=== PATIENT | female | born 1990 | race Caucasian/White ===

== ENCOUNTER 2018-11-25 16:28 | Emergency (ER) | payer OTHER, SELFPAY ==
[2018-11-25 16:30] VITALS: BP 120/70; PULSE 102; RESP 18; TEMP 36.5; O2SAT 98; BMI 30.9
--- NOTE | 2018-11-25 17:04 | US_ITS ---
STUDY: ABDOMINAL ULTRASOUND - RIGHT UPPER QUADRANT REASON FOR VISIT: Female, 28 years old. Right upper quadrant pain. TECHNIQUE: Ultrasound evaluation of the right upper quadrant was performed with real-time and static garcia-scale imaging. TECHNICAL QUALITY: Adequate. COMPARISON: None. FINDINGS: Liver: The liver measures 13.8 cm. There is increased echogenicity consistent with fatty infiltration. The bile ducts are within normal limits. There is hepatic color flow. The direction of portal flow is hepatopetal. There is no demonstrated mass lesion. Gallbladder: Normal distended gallbladder. The gallbladder wall measures 3 mm. There is a negative sonographic Mercedes's sign. There is no pericholecystic fluid. Multiple shadowing stones are noted. Mild sludge is present. Common Bile Duct (C.B.D.): The common bile duct measures 4 mm. Pancreas: Demonstrated portions of the pancreas are unremarkable. The tail was not seen due to bowel gas. Right Kidney: Normal size of the right kidney. The right kidney measures 10.3 x 4.8 x 5.2 cm. Normal renal cortex. The right cortex measures 1.4 cm. There is no demonstrated renal mass or cyst. There is no right hydronephrosis. US/Gallbladder IMPRESSION: Cholelithiasis. No evidence of acute cholecystitis. Electronically Signed: Sally Espana MD at 19:51 EST Tel , Service support ,
[2018-11-25] MEDS: Morphine 4 MG/ML Syringe IV (17:14)
[2018-11-25] MEDS: 0.9% Normal Saline 1,000 ML 150 ML IV (17:14)
[2018-11-25] MEDS: Ondansetron 4 MG/2 ML Vial IV (17:14)
[2018-11-25 17:17] VITALS: BP 114/79; PULSE 79; RESP 16; TEMP 37; O2SAT 96
[2018-11-25 17:55] LABS: Absolute Lymphocyte Count 3.52 X10^3/ul (0.83-4.51); Absolute Neutrophil Count 3.4 X10^3/uL (2.0-7.7); Basophil# 0.06 X10^3/uL; Basophil% 0.7 % (0-1); Eosinophil# 0.36 X10^3/uL; Eosinophils% 4.5 % (0-5); Hematocrit 43.4 % (37-47); Hemoglobin 14.4 g/dl (12.0-15.0); Lymphocyte # 3.52 X10^3/ul (4.0); Lymphocyte % 43.9 % (19-41); Mean Corp Hgb Conc 33.2 g/gl (32-36); Mean Corpuscular Volume 84.4 fL (81-99); Mean Platelet Vol. 10.5 fl (6.2-12.0); Monocyte# 0.68 X10^3/uL; Monocyte% 8.5 % (0-10); Neutrophil # 3.38 X10^3/uL (2.7-7.7); Neutrophil % 42.3 % (47-70); Platelet Count 366 K/mm3 (150-450); RBC Distribution Width SD 39.9 fl (35.1-43.9); Red Blood Count 5.14 M/mm3 (4.2-5.4)
[2018-11-25 17:57] LABS: POSITIVE COUNT NO; POSITIVE DIFFERENTIAL NO; POSITIVE MORPHOLOGY NO
[2018-11-25 18:04] LABS: AST(SGOT) 43 U/L (15-37); Alanine Aminotransfer ALT/SGPT 59 U/L (13-56); Albumin, Serum 3.6 g/dL (3.2-5.0); Alkaline Phosphatase 184 U/L (45-117); Anion Gap 8 (5-15); BUN 7 mg/dL (7-18); BUN/Creat Ratio 10.2 RATIO (10-20); Bilirubin, Direct 0.14 mg/dL (0.00-0.30); Calcium,Total 8.6 mg/dL (8.5-10.1); Chloride 107 mmol/L (98-107); Creatinine, Serum 0.68 mg/dL (0.55-1.02); EST Glomerular Filtration Rate 108 mL/min (>60); Est Glom Filt Rate - Afr Amer 131 mL/min (>60); Estimated Creatinine Clearance 101.89 ml/min; Globulin 4.4 g/dL (2.2-4.2); Glucose 96 mg/dL (74-106); Lipase 106 U/L (73-393); Potassium 3.6 mmol/L (3.5-5.1); Sodium Level 141 mmol/L (136-145)
[2018-11-25 18:12] LABS: Pregnancy, Serum, hCG Quali. NEGATIVE Negative (0-9 Nonpreg)
--- NOTE | 2018-11-25 20:17 | ED.DCSUM_ITS ---
- ER Visit Summary Date of Service: 11/25/18 Chief Complaint: Abdominal pain History of Present Illness: The patient is a 28 F recently diagnosed with gallstones. Patient states she had severe abdominal pain since eating breakfast this morning. She feels nauseated. Dr. Garcia is scheduled to do an upper scope in 3 days. She has not had fever today. Physical Examination: Vital signs unremarkable. Patient is lying in bed no acute distress. She appears uncomfortable but in no distress. Head and neck examination normal. Heart is regular rate and rhythm. Lungs sounds are clear. Abdomen is soft with moderate tenderness to the right upper quadrant. There is no guarding or rebound. Test Results: CBC and chemistry studies are normal. LFTs significant for normal total and direct bilirubin. Alk phos is 184, ALT 59, AST 43. Lipase is normal. test negative. Right upper quadrant ultrasound shows cholelithiasis. There is no evidence of acute cholecystitis. Emergency Department Course and Treatment: Patient was given morphine, Zofran, and IV fluids. Test results were discussed with patient and at bedside. I spoke with Dr. Garcia. Patient will be given pain medication for home and will follow up this week for her scope as scheduled. Treatment Plan: [] Disposition: Discharge Impression: Cholelithiasis This note was generated with [employer] dictation software. It may contain incorrect words, spelling, and punctuation that were not noted in review of the chart prior to signing ED Disposition - Plan for ED Patient: Disposition: Home or Assisted Living Instructions: ED Abdominal Pain Gallstone Poss Prescriptions: Hydrocodone Bitart/Apap 5-325 [[place] 5MG-325MG] 1 tablet PO Q6H PRN PRN 3 Days #10 tablet PRN Reason: Pain Ondansetron [Zofran Odt] 4 mg PO Q8H PRN PRN #10 tablet PRN Reason: Nausea Referrals: Katie Garcia MD [STAFF PHYSICIAN] - Keep Jayden appointment
[2018-11-25] MEDS: HYDROcodone Bitartrate/Apap 5/325 Tablet PO (20:33)
[2018-11-25] MEDS: Ondansetron ODT 4 MG Tablet PO (20:34)
[2018-11-25 20:35] VITALS: BP 101/66; PULSE 65; PULSE 68; RESP 17; O2SAT 97
== END 2018-11-25 20:42 | disposition home or self-care (01) ==
PROVIDERS: Emergency Provider Emergency Medicine; Family Provider Student in an Organized Health Care Education/Training Program; PCP Student in an Organized Health Care Education/Training Program
DX: K80.20 Calculus of gallbladder without cholecystitis without obstruction (principal)
CPT/HCPCS: 76705; 80048; 80076; 83690; 84703; 85025; 96361; 96374; 96375; 99283; J7030; A4216; J2405

== ENCOUNTER 2019-02-04 09:59 | Day surgery (SDC) | payer OTHER, SELFPAY ==
[2019-02-04] VITALS (8 sets, daily range): BP systolic 106–125; BP diastolic 63–78; PULSE 67–85; RESP 16; TEMP 36.5–36.9; O2SAT 95–100; BMI 30.3
--- NOTE | 2019-02-04 10:10 | EKG12_ITS ---
Test Reason : PRE-OP Blood Pressure : / mmHG Vent. Rate : 071 BPM Atrial Rate : 071 BPM P-R Int : 130 ms QRS Dur : 082 ms QT Int : 392 ms P-R-T Axes : 036 052 041 degrees QTc Int : 425 ms Normal sinus rhythm with sinus arrhythmia Normal ECG Confirmed by JAZMYN RINCON, EMILY ([id number]), editor & co founder TYRELL GAUTAM ([id number]) on 02/05/2019 11:42:13 AM Referred By: Katie Garcia Confirmed By:EMILY ELDRIDGE MD
[2019-02-04 10:26] LABS: Hematocrit 40.4 % (37-47); Hemoglobin 13.7 g/dl (12.0-15.0); Mean Corp Hgb Conc 33.9 g/gl (32-36); Mean Corpuscular Hgb 28.4 pg (27.0-32.0); Mean Corpuscular Volume 83.6 fL (81-99); Mean Platelet Vol. 9.9 fl (6.2-12.0); Platelet Count 332 K/mm3 (150-450); RBC Distribution Width CV 13.1 % (11.6-14.6); RBC Distribution Width SD 39.6 fl (35.1-43.9); Red Blood Count 4.83 M/mm3 (4.2-5.4); White Blood Count 7.5 K/mm3 (4.4-11.0)
[2019-02-04 10:27] LABS: Scan Indicated on CBC? Y/N NO
[2019-02-04 10:34] LABS: Prothrombin Time (Protime)PT. 12.8 SECONDS (11.7-14.9)
[2019-02-04 10:35] LABS: Partial Thromboplast Time 25.4 Seconds (24.1-36.2)
[2019-02-04 10:46] LABS: AST(SGOT) 20 U/L (15-37); Alanine Aminotransfer ALT/SGPT 37 U/L (13-56); Albumin, Serum 3.7 g/dL (3.2-5.0); Alkaline Phosphatase 161 U/L (45-117); Bilirubin, Direct 0.15 mg/dL (0.00-0.30); Globulin 4.3 g/dL (2.2-4.2)
--- NOTE | 2019-02-04 12:00 | GALL_PTH ---
PATIENT: TOSHIA SHARIF LOC: [facility] [place] U#:[id number] AGE/SX: 28/F ROOM: RE02/04/[address]: Dr. Katie Garcia MD : 1990 BED: DIS: 02/04/2019 SPEC #: [id number] RECD: 02/04/19 13:49 STATUS: YOLIS PAYAM #: [id number] PEPITO: 02/04/19 12:[address]: Ktaie Garcia DEPT: SURGICAL PATHOLOGY RECD BY: Contreras Neri ENTERED: 02/04/19 14:10 SP TYPE: BEN FRAZIER DR: Dr. Kendell Magana DO Tissues: Gallbladder, NOS Procedures: Surgery Specimen Level III HEADER OPERATION: Laparoscopic cholecystectomy with intraoperative cholangiogram PRE-OP DIAGNOSIS: Calculus of gallbladder without cholecystitis, without obstruction. Right upper quadrant abdominal pain TISSUE SUBMITTED: Gallbladder MICROSCOPIC DIAGNOSIS Gallbladder, cholecystectomy: Chronic cholecystitis and cholelithiasis. SJ:gómez 02/05/19 MICROSCOPIC DESCRIPTION Slides are reviewed. GROSS DESCRIPTION Received is one container labeled with the patient's name and designated gallbladder. The specimen consists of a gallbladder measuring 6.5 cm in length and up to 3.5 cm in diameter. The external surface is pink-purvis, smooth and glistening for the most part. Focally it is granular, hemorrhagic and contains cautery artifact. The gallbladder contains a small amount of green-yellow mucoid bile and multiple multifaceted to irregular yellowish stones and stone fragments measuring in aggregate 3.5 x 4 x 1.5 cm and 0.5 to 1.5 cm in greatest dimension. The mucosa is bile-stained and without any mass lesions. The gallbladder wall measures up to 0.2 cm in thickness. Chief Clerk sections from the gallbladder and the cystic duct are submitted in one cassette. / GARRETT:gómez 02/04/19 TC:3 CPT: 49256
--- NOTE | 2019-02-04 12:00 | RAD_ITS ---
STUDY: INTRAOPERATIVE CHOLANGIOGRAM. REASON FOR EXAM: Female, 28 years old. Laparoscopic cholecystectomy. FLUOROSCOPY TIME (if supplied): (0:03) minutes/seconds. Single image was submitted. TECHNIQUE: An intraoperative cholangiogram was performed by the surgeon. COMPARISON: None. FINDINGS: The common bile duct is visualized. No intraluminal filling defect is seen. There is free flow of contrast into the duodenum. No intraluminal filling defect is seen RAD/Cholangiogram/ O R,Initial IMPRESSION: Unremarkable intraoperative cholangiogram. Electronically Signed: Fermín Caraballo, at 9:35 EDT , Service support ,
--- NOTE | 2019-02-04 12:04 | PCM.DC.GB ---
Discharge Diet: No Restrictions - avoid carbonated beverages for a couple of days, drink plenty of fluids Discharge Activity: Return to Normal Activity, May not drive while taking narcotic pain medications. Lifting Restrictions: no lifting/pulling/pushing greater than 20 pounds for 2 weeks Call your doctor if your incision/area has: Continuous Slow Oozing, Foul Smelling Discharge Call your doctor if you observe: Fever of 101 or Higher Additional Dressing/Incision Instructions:: Leave dressings in place. May get wet in shower. Do not soak - no tub baths/swimming until further notice Additional Instructions: Recommended pain mediation regimen: take 650 mg acetaminophen, than in 3 hours take 600 mg ibuprofen, then in 3 hours take 650 mg of acetaminophen, then in 3 hours take 600 mg ibuprofen, etc. Take narcotic medication for breakthrough pain and at night to help you sleep Allergies/Adverse Reactions: Allergies acetaminophen [From Percocet] Adverse Reaction (Verified 02/04/19 10:24) Nausea oxycodone [From Percocet] Adverse Reaction (Verified 02/04/19 10:24) Nausea Medications to take at Discharge Fluoxetine HCl 20 mg PO DAILY 11/25/18 Lansoprazole 30 mg PO DAILY 11/25/18 Ondansetron [Zofran Odt] 4 mg PO Q8H PRN PRN #10 tablet 11/25/18 Hydrocodone Bitart/Apap 5-325 [[place] 5MG-325MG] 1 tab PO Q8H PRN PRN 4 Days #12 tab 02/04/19 The following prescriptions were given: Hydrocodone Bitart/Apap 5-325 [[place] 5MG-325MG] 1 tab PO Q8H PRN PRN 4 Days #12 tab PRN Reason: Pain Orders to be completed after discharge: Partial Thromboplast Time Time Frame: 02/04/19, Location: Laboratory CBC-Complete Blood Cnt No Diff Time Frame: 02/04/19, Location: Laboratory Liver Profile Time Frame: 02/04/19, Location: Laboratory Prothrombin Time w/INR Time Frame: 02/04/19, Location: Laboratory Primary Care Physician: Kendell Magana DO [Primary Care Provider] - Test Results: Test results from this visit will be discussed in further detail at your follow-up appointment, if applicable. Please Follow Up With: Katie Garcia MD - call When: to be seen in 7-10 days, please call for date and time, thank you
--- NOTE | 2019-02-04 12:07 | DCINST_ITS ---
Discharge Diet: No Restrictions - avoid carbonated beverages for a couple of days, drink plenty of fluids Discharge Activity: Return to Normal Activity, May not drive while taking narcotic pain medications. Lifting Restrictions: no lifting/pulling/pushing greater than 20 pounds for 2 weeks Call your doctor if your incision/area has: Continuous Slow Oozing, Foul Smelling Discharge Call your doctor if you observe: Fever of 101 or Higher Additional Dressing/Incision Instructions:: Leave dressings in place. May get wet in shower. Do not soak - no tub baths/swimming until further notice Additional Instructions: Recommended pain mediation regimen: take 650 mg acetaminophen, than in 3 hours take 600 mg ibuprofen, then in 3 hours take 650 mg of acetaminophen, then in 3 hours take 600 mg ibuprofen, etc. Take narcotic medication for breakthrough pain and at night to help you sleep Allergies/Adverse Reactions: Allergies acetaminophen [From Percocet] Adverse Reaction (Verified 02/04/19 10:24) Nausea oxycodone [From Percocet] Adverse Reaction (Verified 02/04/19 10:24) Nausea Medications to take at Discharge Fluoxetine HCl 20 mg PO DAILY 11/25/18 Lansoprazole 30 mg PO DAILY 11/25/18 Ondansetron [Zofran Odt] 4 mg PO Q8H PRN PRN #10 tablet 11/25/18 Hydrocodone Bitart/Apap 5-325 [[place] 5MG-325MG] 1 tab PO Q8H PRN PRN 4 Days #12 tab 02/04/19 The following prescriptions were given: Hydrocodone Bitart/Apap 5-325 [[place] 5MG-325MG] 1 tab PO Q8H PRN PRN 4 Days #12 tab PRN Reason: Pain Orders to be completed after discharge: Partial Thromboplast Time Time Frame: 02/04/19, Location: Laboratory CBC-Complete Blood Cnt No Diff Time Frame: 02/04/19, Location: Laboratory Liver Profile Time Frame: 02/04/19, Location: Laboratory Prothrombin Time w/INR Time Frame: 02/04/19, Location: Laboratory Primary Care Physician: Kendell Magana DO [Primary Care Provider] - Test Results: Test results from this visit will be discussed in further detail at your follow- up appointment, if applicable. Please Follow Up With: Katie Garcia MD - call When: to be seen in 7-10 days, please call for date and time, thank you
[2019-02-04] MEDS: Bupiv/Epi 0.25% 30 ML Vial (12:26)
--- NOTE | 2019-02-04 13:14 | OP.PCM_ITS ---
Report of Operation Date of Procedure: 02/04/19 Pre-Operative Diagnosis: cholelithiasis Post-Operative Diagnosis: cholelithiasis, chronic cholecystitis Surgery/Procedure Performed:: Laparoscopic cholecystectomy with cholangiograms Description of Surgical Findings:: normal cholangiogram, chronic cholecystitis, multiple gallstones loom checker: Panchito Quiroz Type of Anesthesia:: General Anesthesiologist: Edward Webster Specimen's removed: gallbladder and contents Estimated Blood Loss (mL): < 10 Fluids Replaced: 1400 cc RL Description of Procedure: After informed consent was given, the patient was brought to the Operating Room. Appropriate time out protocol was followed. She was then placed in the supine position. The patient was then placed under general endotracheal anesthesia. The abdomen was then prepped with a sterile surgical skin preparation and floyd rile surgical drapes were placed. The infraumbilical skin fold was grasped with penetrating clamps and the skin and subcutaneous tissues were infiltrated with 0.5% marcaine with epinephrine. A skin incision was then made with a 15 blade scalpel. The anterior abdominal wall was elevated and a Veress needle was carefully inserted into the intraabdominal cavity. It was checked to be in the proper position with a normal saline drop test. A CO2 pneumoperitoneum was then created. Once this was achieved, then the Veress needle was removed and an 11mm trocar was placed in its stead. A 10mm laparoscope was then inserted into the trocar and careful attention was directed to the intraabdominal contents. There was no evidence of injury to any intraabdominal organs from insertion of the Veress needle or the trocar. Under direct visualization, a 5mm subxiphoid trocar and two lateral 5mm right subcostal trocars were placed. The skin and subcutaneous tissues at these sites were infiltrated with 0.5% marcaine with epinephrine prior to placement of these trocars. Attention was then directed to the right upper quadrant of the abdomen. Graspers were placed in the lateral trocars to grasp the distal aspect of the gallbladder and direct it cephalad and to grasp the gallbladder at Monsivais?s pouch and direct it laterally. Dissection then began on the proximal gallbladder continuing down to the area of the triangle of Calot to bluntly dissect out the cystic duct. The neck of the gallbladder was identified and blunt dissection continued to dissect out a segment of the cystic duct. A clip was then placed on the neck of the gallbladder. A small ductotomy was then made. A Ranfac catheter was brought in through a separate skin incision and placed into the cystic duct. An intraopera tive cholangiogram was performed under fluoroscopy. The xray revealed no lesions in the common bile duct, arborization of the biliary tree, and good flow into the duodenum. The Ranfac catheter was then removed and two clips were placed proximal to the ductotomy and the cystic duct was then transected. The cystic artery was visualized and bluntly isolated and then two clips were placed proximally and one clip distally and then it was transected between the proximal and distal clips. The gallbladder was then from the liver bed using electrocautery and thus able to be brought out of the umbilical port via an Endobag. It was then forwarded to pathology for analysis. The liver bed was carefully examined. There was no evidence of bile leakage or bleeding. The cystic duct stump and cystic artery stump had their clips intact and there was no evidence of bile leakage or bleeding. The remainder of the abdomen was grossly normal. The CO2 was released and all trocars removed intact. The periumbilical fascia was approximated with a [id number] 0 vicryl suture. All skin incision were closed with 4-0 monocryl in a subdermal fashion. Cavilol and Steristrips were used to reinforce the skin closure. Sterile dressings were applied to all wounds. The patient was extubated and brought to the Recovery Room in stable condition. - Complications none noted - Admit VTE Documentation VTE Present on Admission: Yes VTE Mechan Device Prophylaxis: SCD's
[2019-02-04] MEDS: Ondansetron 4 MG/2 ML Vial IV (15:34)
== END 2019-02-04 16:30 | disposition home or self-care (01) ==
LOC: SDC 09:59 → AC 10:01
PROVIDERS: Family Provider Student in an Organized Health Care Education/Training Program; PCP Student in an Organized Health Care Education/Training Program; Referring Provider Surgery; Visit Provider Surgery
PROC: (CPT 47610; principal; 2019-02-04 11:40)
DX: K80.10 Calculus of gallbladder with chronic cholecystitis without obstruction (principal); K21.9 Gastro-esophageal reflux disease without esophagitis
CPT/HCPCS: 00790; 47563; 74300; 76000; 80076; 85027; 85610; 85730; 88304; 93005; J7120; A4216; J2405

== ENCOUNTER 2020-06-06 12:26 | Emergency (ER) | payer MEDICAID, SELFPAY ==
[2019-02-04 10:25] VITALS: BMI 30.3
[2020-06-06 12:27] VITALS: BP 117/73; PULSE 85; RESP 14; TEMP 36.3; O2SAT 99; BMI 28.8
--- NOTE | 2020-06-06 12:37 | ED.DCSUM_ITS ---
- ER Visit Summary Date of Service: 06/06/20 Chief Complaint: Headache History of Present Illness: The patient is a 30 F presenting with headache. Patient states this started last night. Headache was gradual in onset. She states this feels similar to her previous migraine headaches. She states she ran out of her migraine medication. She does not know what migraine medication she was on. She denies recent trauma. She complains of light sensitivity and nausea. She has pain to the left side of her head. Denies neck pain. Denies other complaints. Physical Examination: Vitals are stable. Patient is afebrile. Alert no acute distress. HEENT exam is unremarkable. Neck is supple. No meningismus Lungs are clear and equal bilaterally. Heart is regular rate and rhythm. Abdomen is soft nontender nondistended. Extremities are unremarkable. Skin is warm and dry. No focal neurologic deficit. Remainder of exam is unremarkable. Emergency Department Course and Treatment: Patient was given Reglan, Benadryl IV. On reevaluation, she is feeling much improved. She is advised to follow-up with her primary care physician. Advised return to the ED for worsening complaints. Disposition: Discharge home Impression: Headache This note was generated with [employer] dictation software. It may contain incorrect words, spelling, and punctuation that were not noted in review of the chart prior to signing ED Disposition - Plan for ED Patient: Instructions: ED Headache Unspecified Referrals: Kendell Magana DO [Primary Care Provider] -
[2020-06-06] MEDS: DiphenhydrAMINE 50 MG/ML Syringe 25 MG IV (13:30)
[2020-06-06] MEDS: Metoclopramide 10 MG/2 ML Vial 5 MG IV (13:30)
--- NOTE | 2020-06-06 14:02 | ED.DEP ---
ED Disposition - Plan for ED Patient: Instructions: ED Headache Unspecified Referrals: Kendell Magana DO [Primary Care Provider] -
[2020-06-06 14:25] VITALS: BP 102/63; PULSE 68; RESP 18; O2SAT 100
== END 2020-06-06 14:27 | disposition home or self-care (01) ==
PROVIDERS: Emergency Provider Emergency Medicine; PCP Student in an Organized Health Care Education/Training Program
DX: R51 Headache (principal)
CPT/HCPCS: 96374; 96375; 99284

== ENCOUNTER 2021-06-18 00:33 | Emergency (ER) | payer MEDICAID, SELFPAY ==
[2021-06-18 00:35] VITALS: BP 127/68; PULSE 97; RESP 15; TEMP 36.4; O2SAT 98; BMI 34.8
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
[2021-06-18 01:28] VITALS: O2SAT 96
[2021-06-18 01:28] LABS: Absolute Lymphocyte Count 3.49 X10^3/uL (0.83-4.51); Absolute Neutrophil Count 6.9 X10^3/uL (2.0-7.7); Basophil# 0.07 X10^3/uL; Basophil% 0.6 % (0-1); Eosinophil# 0.29 X10^3/uL; Eosinophils% 2.5 % (0-5); Hematocrit 41.4 % (37-47); Hemoglobin 13.8 g/dL (12.0-15.0); Lymphocyte # 3.49 X10^3/ul (0.83-4.51); Lymphocyte % 29.6 % (19-41); Mean Corp Hgb Conc 33.3 g/dL (32-36); Mean Corpuscular Hgb 28.5 pg (27.0-32.0); Mean Corpuscular Volume 85.4 fL (81-99); Mean Platelet Vol. 9.9 fl (6.2-12.0); Monocyte# 0.97 X10^3/uL; Monocyte% 8.2 % (0-10); NRBC Flagged by Analyzer 0 % (0-5); Neutrophil # 6.92 X10^3/uL (2.7-7.7); Neutrophil % 58.8 % (47-70); Platelet Count 388 K/mm3 (150-450); RBC Distribution Width SD 37.2 fl (35.1-43.9); Red Blood Count 4.85 M/mm3 (4.2-5.4); White Blood Count 11.8 K/mm3 (4.4-11.0)
[2021-06-18 01:47] LABS: Anion Gap 4 (5-15); BUN 9 mg/dL (7-18); BUN/Creat Ratio 14.4 RATIO (10-20); Calcium,Total 9.3 mg/dL (8.5-10.1); Chloride 108 mmol/L (98-107); Creatinine, Serum 0.62 mg/dL (0.55-1.02); EST Glomerular Filtration Rate 118 mL/min (>60); Est Glom Filt Rate - Afr Amer 143 mL/min (>60); Estimated Creatinine Clearance 108.76 ml/min; Glucose 87 mg/dL (74-106); Potassium 3.4 mmol/L (3.5-5.1); Sodium Level 140 mmol/L (136-145); Troponin-I HS 5 pg/mL (3.0-54.0)
--- NOTE | 2021-06-18 01:49 | RAD_ITS ---
STUDY: X-RAY CHEST REASON FOR EXAM: Female, 31 years old. Chest pain TECHNIQUE: Portable, upright, AP chest radiograph COMPARISON: None. FINDINGS: The lungs are clear and expanded. There is no demonstrated pleural abnormality. Normal size heart. Normal mediastinum and timbo. Normal visualized pulmonary arteries. Normal visualized aortic arch and descending thoracic aorta. Normal visualized thoracic spine. Normal visualized ribs, clavicles, and shoulders. There is no demonstrated abnormality of the visualized soft tissue structures of the upper abdomen. RAD/Chest 1 View (Portable) IMPRESSION: No acute abnormal cardiopulmonary finding. Electronically Signed: Ryley Rich MD at 2:34 EDT Tel , Service support ,
--- NOTE | 2021-06-18 01:50 | RAD_ITS ---
STUDY: X-RAY - LEFT KNEE REASON FOR EXAM: Female, 31 years old. Left KNEE PAIN TECHNIQUE: 4 radiographic view(s) of the left knee. COMPARISON: None. FINDINGS: Normal visualized distal femur. Normal visualized proximal tibia and fibula. Normal proximal tibiofibular articulation. There is no demonstrated fracture. Fabella. Normal medial femorotibial compartment. Normal lateral femorotibial compartment. Normal patellofemoral articulation. There is no demonstrated joint effusion. The soft tissue structures are unremarkable. RAD/Knee 4 or More Views IMPRESSION: No acute abnormal finding. Electronically Signed: Ryley Rich MD at 2:36 EDT Tel , Service support ,
[2021-06-18 03:01] VITALS: PULSE 87; RESP 15; O2SAT 99
== END 2021-06-18 03:02 | disposition home or self-care (01) ==
PROVIDERS: Emergency Provider Student in an Organized Health Care Education/Training Program; PCP Nurse Practitioner Family
DX: R07.9 Chest pain, unspecified (principal); S80.02XA Contusion of left knee, initial encounter; F41.9 Anxiety disorder, unspecified; Z79.899 Other long term (current) drug therapy; V89.2XXA Person injured in unspecified motor-vehicle accident, traffic, initial encounter
CPT/HCPCS: 71045; 73564; 80048; 84484; 85025; 93005; 99285; A4216

== ENCOUNTER → 2021-09-27 12:28 | Outpatient (CLI) | payer OTHER, MEDICAID, SELFPAY ==
--- NOTE | 2021-09-27 12:30 | MRI_ITS ---
STUDY: MRI LEFT ANKLE WITHOUT CONTRAST REASON FOR EXAM: Left ankle pain for 10 months, left ankle injury. TECHNIQUE: Standardized fat and water weighted pulse sequences were obtained in all 3 orthogonal planes. COMPARISON: None. FINDINGS: Normal subcutis adipose space. Normal posterior tibialis tendon. Normal flexor digitorum longus tendon. Normal flexor hallucis longus tendon. Normal peroneus longus and brevis tendons. Normal tibialis anterior tendon. Normal extensor hallucis longus tendon. Normal extensor digitorum longus tendons. Normal Achilles tendon and teno-osseous insertion. There is minimal fluid in the retrocalcaneal bursa. Normal plantar fascia. Normal plantar calcaneal tubercles. Normal intrinsic muscles of the rearfoot. Normal distal tibiofibular syndesmotic ligamentous complex. There is thickening of the anterior talofibular ligament (T2 axial image 16) consistent with scarring. Normal calcaneofibular and posterior talofibular ligaments. Normal subtalar ligaments and sinus tarsi. Normal deltoid ligamentous complexes. Normal plantar calcaneonavicular (spring) ligament. Normal tibiotalar articulation. Normal talar dome. Normal subtalar articulations. There is slight bone edema in the sustentaculum trisha (T2 coronal image 14). Normal talonavicular articulation. Normal calcaneocuboid articulation. There is a nondisplaced fracture of the anterior superior calcaneal process (T1 sagittal images 13-16) without osseous union or bone edema. Normal navicular-cuneiform articulations. MRI/Lower Ext Joint Only (Routine) IMPRESSION: Scarring of the anterior talofibular ligament. Chronic fracture of the anterior superior calcaneal process. Electronically Signed: Yassine Hyde MD at 14:08 EST Tel , Service support ,
== END ==
PROVIDERS: PCP Nurse Practitioner Family; Referring Provider Podiatrist; Visit Provider Podiatrist
DX: S93.402A Sprain of unspecified ligament of left ankle, initial encounter (principal)
CPT/HCPCS: 73721

== ENCOUNTER 2023-05-25 08:07 | Emergency (ER) | payer MEDICAID, SELFPAY ==
[2023-05-25 08:08] VITALS: BP 109/61; PULSE 73; RESP 18; TEMP 36.2; O2SAT 98; BMI 31.6
--- NOTE | 2023-05-25 08:12 | ED.VIS.GI ---
HPI HPI - GI History of Present Illness Chief Complaint: Abd Pain Informant: patient and EMS Abdominal Pain/Flank Pain Onset: Today (10 minutes ago) Context: Sudden Onset Timing: Continuous and Waxes and wanes Quality: Aching Location: Epigastric (Without radiation in the back or elsewhere) Current Severity: Severe Maximum Severity: Severe Worsened by: Nothing Relieved by: Nothing (Has not tried any medications) Nausea/Vomiting/Emesis GI Symptom: Positive for Nausea; Negative for Vomiting Narrative Narrative: Patient works at [employer] and she has not had anything to eat yet this morning, started having severe epigastric pain after she arrived at work. Never had this before no history of reflux that she knows of. EMS brought her, they did an EKG which I interpreted, it is normal, they did not start an IV because the patient is a difficult stick according to her. She was seen at the ER in [place] yesterday for generalized sharp abdominal pains, states she had blood work, CT scan, and was diagnosed with a urinary tract infection. She states she does not have any urinary symptoms now nor did she yesterday. She states that pain is not there now. [facility] Medical History (Updated 05/25/23 @ 11:[address] Shaq Palomo MD) Anxiety Home Medications ondansetron 4 mg disintegrating tablet 4 mg PO Q8H PRN PRN Nausea #10 tabs 11/25/18 [Rx Last Taken Unknown] buspirone 5 mg tablet 5 mg PO TID 06/18/21 [History Last Taken Unknown] naproxen 500 mg tablet 500 mg PO BID 06/18/21 [History Last Taken Unknown] spironolactone 25 mg tablet 25 mg PO DAILY 06/18/21 [History Last Taken Unknown] tizanidine 4 mg tablet 4 mg PO TID 06/18/21 [History Last Taken Unknown] dicyclomine 10 mg capsule 20 mg (2 x 10 mg) PO Q6H PRN PRN abdominal pain #30 CAPSULES 05/25/23 [Rx Last Taken Unknown] pantoprazole 40 mg tablet,delayed release 40 mg PO DAILY #14 tabs 05/25/23 [Rx Last Taken Unknown] Allergy/AdvReac Type Severity Reaction Status Date / Time oxycodone [From Percocet] AdvReac Nausea Verified 05/25/23 08:13 Surgical History (Updated 05/25/23 @ 08:[address] Shaq Palomo MD) H/O tubal ligation History of appendectomy History of cholecystectomy Social History Smoking Status: Never smoker ROS ROS ED Constitutional Constitutional ED: Denies chills or fever(s) Eyes Eyes: Denies change in vision or diplopia ENT ENT ED: Denies rhinorrhea or sore throat Cardiovascular Cardiovascular: Denies chest pain or palpitations Respiratory/Chest Respiratory/Chest: Denies cough or dyspnea Gastrointestinal Gastrointestinal: Reports abdominal pain and nausea; Denies diarrhea or vomiting Genitourinary Genitourinary ED: Denies dysuria or hematuria Musculoskeletal Musculoskeletal: Denies back pain or neck pain Integumentary Denies abscess or rash Neurologic Neurologic: Denies headache(s), paresthesias or weakness Psychiatric Psychiatric: Reports anxiety; Denies suicidal thoughts EXAM Physical Exam Const Vital Signs: 05/25/23 08:08 Temperature 97.2 F L Temperature Source Temporal Pulse Rate 73 Respiratory Rate 18 Blood Pressure 109/61 Blood Pressure Mean 77 Pulse Ox 98 Oxygen Delivery Method Room Air Positive well nourished and well developed Constitutional Narrative: Very anxious, and intermittent acute painful distress, wincing in pain and holding her epigastrium. General Appearance ED: well developed and NAD HEENT Reports moist mucous membranes normocephalic and atraumatic Eyes PERRL and EOMs intact bilaterally Neck full ROM and supple Resp normal respiratory effort and clear to auscultation bilaterally Cardio regular rate, regular rhythm and no murmurs GI non-distended GI Narrative: Tender epigastrium without guarding or rebound, otherwise benign abdomen and nontender throughout. Auscultation: normoactive bowel sounds Palpation: soft Back/Spine no CVA tenderness General Back: other FROM Extremity normal to inspection General Extremety ED: Negative for edema, pulses abnormal or tenderness General Extremity: Negative for edema or pulses abnormal Neuro oriented x3, CN's II-XII intact bilaterally and no sensory deficits noted Sensorium / Orientation: awake and alert Motor Exam: strength 5/5 throughout Psych thought process normal Mood & Affect: anxious Skin no rashes or lesions noted and no wounds MDM MDM MDM Narrative Medical decision making narrative: Patient was given a GI cocktail which did not seem to do anything immediately, but then also given oral Zofran and IM dicyclomine, and eventually her pain settled although was still there a little, not nearly as severe as it was when she came in, I suspect this was esophageal spasm. Other upper GI pathology in the differential as well. Her chemistries and liver and lipase are normal except for slightly elevated AST and ALT this is nonspecific, they are 68 and 61 respectively, which is barely off the normal range. She already had a cholecystectomy so I do not think we need to do a ultrasound for anything here, will prescribe her pantoprazole and advised close outpatient follow-up. History & Record Review Additional record(s) reviewed:: Prior outpatient record (ED visit, including labs and CT results which were normal, Jennifer 2 days ago) Lab Data Attestation: I reviewed the patient's lab results. Labs: Laboratory Results - last 24 hr 05/25/23 08:20 Sodium 139 Potassium 3.3 L Chloride 110 H Carbon Dioxide 24.0 Anion Gap 5 BUN 9 Creatinine 0.70 Estim Creat Clear Calc 95.44 Est GFR (MDRD) Af Amer 124 Est GFR (MDRD) Non-Af 103 BUN/Creatinine Ratio 12.9 Glucose 93 Calcium 8.5 Total Bilirubin 0.50 AST 68 H ALT 61 H Alkaline Phosphatase 116 Total Protein 7.2 Albumin 3.2 Globulin 4.0 Albumin/Globulin Ratio 0.8 L Lipase 30 Discharge Plan Triage Chief Complaint: Abd Pain ED Provider: Shaq Palomo Dx/Rx/DC Orders Clinical Impression: Epigastric abdominal pain Instructions: ED Epigastric Pain Uncertain Cause Prescriptions: New pantoprazole 40 mg tablet,delayed release (DR/EC) 40 mg PO DAILY Qty: 14 0RF dicyclomine 10 mg capsule 20 mg PO Q6H PRN PRN (Reason: abdominal pain) Qty: 30 0RF No Action ondansetron 4 MG tablet 4 mg PO Q8H PRN PRN (Reason: Nausea) Qty: 10 0RF buspirone 5 mg tablet 5 mg PO TID Patient Comments: TAKE 1 TABLET BY MOUTH THREE TIMES A DAY spironolactone 25 mg tablet 25 mg PO DAILY Patient Comments: TAKE 1 TABLET BY MOUTH EVERY DAY tizanidine 4 mg tablet 4 mg PO TID Patient Comments: TAKE 1 TABLET BY MOUTH THREE TIMES DAILY naproxen 500 mg tablet 500 mg PO BID Patient Comments: TAKE 1 TABLET BY MOUTH TWICE DAILY Stand Alone Forms: ED Work / School Excuse Primary Care Provider: Alyce Velarde NP Referrals: Alyce Velarde NP, [facility] [Primary Care Provider] - (Within the next week or so) Disposition Disposition: Home, Self Care
[2023-05-25] MEDS: Mag Hydrox/Al Hydrox/Simeth 30 ML UDC PO (08:43)
[2023-05-25] MEDS: Ondansetron ODT 4 MG Tablet 8 MG PO (08:43)
[2023-05-25] MEDS: Dicyclomine 20 MG/2 ML Vial IM (08:43)
[2023-05-25 08:50] LABS: ALB/GLOB Ratio 0.8 RATIO (0.9-2.4); AST(SGOT) 68 U/L (15-37); Alanine Aminotransfer ALT/SGPT 61 U/L (13-56); Albumin, Serum 3.2 g/dL (3.2-5.0); Alkaline Phosphatase 116 U/L (45-117); Anion Gap 5 (5-15); BUN 9 mg/dL (7-18); BUN/Creat Ratio 12.9 RATIO (10-20); Calcium,Total 8.5 mg/dL (8.5-10.1); Chloride 110 mmol/L (98-107); EST Glomerular Filtration Rate 103 mL/min (>60); Est Glom Filt Rate - Afr Amer 124 mL/min (>60); Estimated Creatinine Clearance 95.44 ml/min; Glucose 93 mg/dL (74-106); Lipase 30 U/L (13-75); Potassium 3.3 mmol/L (3.5-5.1); Protein, Total 7.2 g/dL (6.4-8.2); Sodium Level 139 mmol/L (136-145)
[2023-05-25 11:08] VITALS: BP 134/78; PULSE 98; RESP 14; O2SAT 98
[2023-05-25] MEDS: Pantoprazole Sodium 40 MG Tablet PO (11:39)
== END 2023-05-25 11:43 | disposition home or self-care (01) ==
PROVIDERS: Emergency Provider Emergency Medicine; PCP Nurse Practitioner Family; Visit Provider Emergency Medicine
DX: R10.13 Epigastric pain (principal)
CPT/HCPCS: 80053; 83690; 96372; 99285; A4216

== ENCOUNTER 2025-03-07 06:32 | Day surgery (SDC) | payer MEDICAID, SELFPAY ==
--- NOTE | 2025-02-05 12:24 | PCM.HP.BLA ---
History and Physical Date of Admission: 03/07/25 HPI: The patient is a 34 year old female presenting for pre-operative visit. She is scheduled for LAVH, bialateral salpingectomy and possible cystoscopy for menorrhagia,, dyspareunia and subserosal uterine fibroid on 03/07/25. Procedure discussed along with risks, benefits and complications. Other alternatives discussed for management. Consent form signed? Yes. ? ? PAST MEDICAL HISTORY PAST MEDICAL HISTORYDiagnosisDate?Anxiety??Migraines??Scoliosis??[id number] ? ? PAST SURGICAL HISTORY PAST SURGICAL HISTORYProcedureLateralityDate?APPENDECTOMY?2013?CHOLECYSTECTOMY W/CHOLANGIOGRAPHY?02/04/2019?Dr. Garcia; unremarkable intraoperative cholangiogram?LIG/TRNSXJ FLP TUBE ABDL/VAG APPR UNI/BI???Tubal ligation ? ? ? CURRENT MEDICATIONS Current Outpatient MedicationsMedicationSigDispenseRefill?vitamin E, dl,tocopheryl acet, (VITAMIN E, DL, ACETATE,) 180 mg (400 unit) capsuleTake 1 capsule by mouth once daily.???acetaminophen 325 mg-caffeine 40 mg-butalbital 50 mg (FIORICET) per tabletTake 1 tablet by mouth every 6 hours as needed.???busPIRone (BUSPAR) 15 mg tabletTake 15 mg by mouth.???omeprazole (PRILOSEC) 20 mg capsuleTake 20 mg by mouth.???PARoxetine (PAXIL) 20 mg tabletTake 20 mg by mouth.???silver sulfADIAZINE (SILVADENE) 1 % creamApply to affected area two times a day.???ondansetron orally disintegrating (ZOFRAN ODT) 4 mg disintegrating tabletTAKE 1 TABLET BY MOUTH EVERY 8 HOURS NEEDED FOR NAUSEA AND VOMITING???diphenoxylate-atropine (LOMOTIL) 2.5-0.025 mg per tabletTAKE 1 TABLET BY MOUTH EVERY 6 HOURS NEEDED FOR DIARRHEA???dicyclomine (BENTYL) 10 mg capsuleTAKE 2 CAPSULES BY MOUTH EVERY 6 HOURS NEEDED FOR ABDOMINAL PAIN???rizatriptan (MAXALT CARTON FORMING MACHINE HELPER) [address] 1 TABLET ON THE TONGUE ONE TIME AT ONSET OF HEADACHE MAY REPEAT AFTER 2 HOURS NEEDED???spironolactone (ALDACTONE) 25 mg tabletTake 25 mg by mouth.???ACETAMINOPHEN/PAMABROM (MIDOL ORAL)Take by mouth.???No current facility-administered medications for this visit. ? ? ALLERGIES: Penicillins and Percocet [Oxycodone-Acetaminophen] ? PERSONAL HISTORY: SOCIAL HISTORY Social History?Tobacco Use?Smoking status:Never?Smokeless tobacco:NeverSubstance Use Topics?Alcohol use:No??Comment: occasionally?Drug use:No ? FAMILY HISTORY: FAMILY HISTORY FAMILY HISTORY ProblemRelationAge of Onset?ArthritisMother? ? ? REVIEW OF SYMPTOMS: GENERAL: denies fevers or chills ENDOCRINOLOGY: has not been on steroids Cardiology : denies palpitations or chest pain Respiratory: denies SOB or cough Hematology: denies history of prolonged bleeding or easy bruising or VTE Allergy: Denies history of personal or family history of allergy to anesthesia ? PHYSICAL EXAMINATION: ? VITALS: Weight 82.6 kg (182 lb), last menstrual period 01/16/2025. ? GENERAL: The patient is well nourished, well hydrated in no acute distress. , The patient is oriented to time, place, and person. NECK: Supple. No lynphadenopathy, normal thyroid, no thyromegaly. LUNGS: Clear to auscultation bilaterally. no wheezes, rhonchi or rales HEART: Regular rate and rhythm, Normal heart sounds, and No murmurs or gallops ? PELVIC US 10/22/24: Impression The uterus is retroverted and measures 88 mm x 47 mm x 67 mm. The myometrium is heterogeneous. The endometrial thickness is 10.1 mm. There is an anterior midline subserosal fibroid that measures 9 mm x 11 mm x 4 mm. The right ovary measures 22 mm x 22 mm x 15 mm. The left ovary measures 25 mm x 26 mm x 18 mm. There is trace free fluid visualized. ? ? IMPRESSION: sebserosal fibroid, menorrhagia, dyspareunia ? PLAN: The risks/benefits/alternatives and personal involved for the planned LAVH,bialteral salpingectomy and possible cystoscopy were reviewed with the patient. Her questions were answered to her satisfaction and she desires to proceed. Consent was signed. I reviewed with her postop instructions and expectations. ?recent BV, add flagyl to preop antibiotics ? I have reviewed and updated past medical and surgical history, medications and allergies Assessment & Plan Assessment/Plan (1) Fibroids, subserous: (2) Deep dyspareunia: (3) Menorrhagia:
[2025-03-06 17:17] LABS: Hematocrit 37.9 % (37-47); Hemoglobin 12.9 g/dL (12.0-15.0); Mean Corpuscular Hgb 28.6 pg (27.0-32.0); Mean Platelet Vol. 10.9 fl (6.2-12.0); Platelet Count 345 K/mm3 (150-450); RBC Distribution Width CV 12.6 % (11.6-14.6); RBC Distribution Width SD 38.6 fl (35.1-43.9); Red Blood Count 4.51 M/mm3 (4.2-5.4); White Blood Count 9.3 K/mm3 (4.4-11.0)
[2025-03-06 17:55] LABS: ALB/GLOB Ratio 1.2 RATIO (0.9-2.4); AST(SGOT) 27 U/L (<=31); Alanine Aminotransfer ALT/SGPT 30 U/L (<=34); Alkaline Phosphatase 125 U/L (35-104); Anion Gap 11 (5-15); BUN 9 mg/dL (4-19); BUN/Creat Ratio 14.5 RATIO (10-20); Calcium,Total 8.8 mg/dL (7.6-11.0); Carbon Dioxide 22.7 mmol/L (21.0-32.0); Chloride 105 mmol/L (98-108); Creatinine, Serum 0.62 mg/dL (0.70-1.20); EST Glomerular Filtration Rate 120 (>60); Globulin 3.3 g/dL (2.2-4.2); Glucose 96 mg/dL (70-99); Magnesium 2.1 mg/dL (1.5-2.2); Protein, Total 7.3 g/dL (5.9-8.4); Sodium Level 139 mmol/L (133-145); Total Bilirubin 0.69 mg/dL (0.00-1.30)
[2025-03-07] VITALS (14 sets, daily range): BP systolic 101–115; BP diastolic 52–71; PULSE 81–95; RESP 16; TEMP 36.8–37.3; O2SAT 95–100; BMI 32.0
[2025-03-07] MEDS: Lactated Ringers 1,000 ML 40 ML IV (06:45)
[2025-03-07] MEDS: Magnesium 1 GM over 15 mins IV (07:29)
[2025-03-07] MEDS: Enoxaparin 40 MG/0.4 ML Syringe SC (07:29)
[2025-03-07] MEDS: Celecoxib 200 MG Capsule 400 MG PO (07:29)
[2025-03-07] MEDS: Acetaminophen 500 MG Tablet 1000 MG PO (07:29)
[2025-03-07] MEDS: Scopolamine 1mg/72hr Patch 1 PATCH TD (07:29)
[2025-03-07] MEDS: Phenazopyridine 95 MG Tablet 190 MG PO (07:30)
[2025-03-07] MEDS: Gabapentin 600 MG Tablet PO (07:30)
[2025-03-07 07:38] LABS: Internal QC Validated? YES +Cl - CLEAR BKGD; Pregnancy, Urine Negative Negative
[2025-03-07 08:00] LABS: Bedside Glucose 90 mg/dL (74-106)
--- NOTE | 2025-03-07 08:06 | PRE.ANES_ITS ---
ASA Classification* ASA Classification ASA Classification: 2 Assessment & Plan Anesthesia* Anesthesia Assessment Anesthesia Assessment: Discussed sedation and/or anesthesia options, risks, benefits, and alternatives with patient/parents/legal guardian/POA. Questions invited. The patient/parents/legal guardian/POA seems to understand and agrees to proceed with anesthesia plan. Reviewed the physical assessment, medical history, allergy history and patient home medications list prior to surgery/procedure/anesthetic and documented any changes. Performed airway and anesthesia risk assessments. Anesthesia Type Anesthesia Type: General (Consider GlideScope intubation.) History Source History Obtained from:: Patient and Chart Anesthesia Focused Assessment* Temperature: 98.9 F Pulse Rate: 89 Blood Pressure: 110/68 Respiratory Rate: 16 Pulse Ox: 99 Oxygen Delivery Method: Room Air Airway Assessment Mouth opens: >3 cm Mallampati Score: IV Teeth Condition: Intact Neck Range of motion (ROM): Full ROM Focused Labs Anesthesia Preop lab: CBC WBC 9.3 K/mm3 (4.4-11.0) 03/06/25 16:06 03/06/25 RBC 4.51 M/mm3 (4.2-5.4) 03/06/25 16:06 03/06/25 Hgb 12.9 g/dL (12.0-15.0) 03/06/25 16:06 03/06/25 Hct 37.9 % (37-47) 03/06/25 16:06 03/06/25 Plt Count 345 K/mm3 (150-450) 03/06/25 16:06 03/06/25 CHEMISTRY Potassium 4.0 mmol/L (3.3-5.1) 03/06/25 16:06 03/06/25 Sodium 139 mmol/L (133-145) 03/06/25 16:06 03/06/25 Magnesium 2.1 mg/dL (1.5-2.2) 03/06/25 16:06 03/06/25 BUN 9 mg/dL (4-19) 03/06/25 16:06 03/06/25 Creatinine 0.62 mg/dL (0.70-1.20) L 03/06/25 16:06 Glucose 96 mg/dL (70-99) 03/06/25 16:06 03/06/25 POC Glucose 90 mg/dL (74-106) 03/07/25 07:07 03/07/25 TSH 1.41 uIU/mL (0.358-3.74) 11/09/12 11:50 3 COAG PT 12.8 SECONDS (11.7-14.9) 02/04/19 10:20 Urine Test Negative Negative 03/07/25 06:50 03/07/25 Pre-Assessment Diagnosis/Proposed Procedure Planned Operative Procedure(s): HYSTERECTOMY LAVH BSO Anesthesia History Anesthesia History - sterile processing technologist: Anesthesia History - sterile processing technologist Hx Hospitalization No 02/20/25 13:23 Any Problems With Anesthesia No 02/20/25 13:23 Cholinesterase deficiency No 02/20/25 13:23 You/Your Family Experience No 02/20/25 13:23 fever (hyperthermia) with Relationship Recent Exposure to Contagious No 03/07/25 07:04 Disease Does patient have nerve No 02/20/25 13:23 stimulator Patient instructed to have device shut off --Does patient have Pacemaker No 03/07/25 07:14 or ICD? When Was Last Pacemaker Check QUESTION #4 FULL TEXT: You/Your Family Experience fever (hyperthermia) with Anesthesia Last Oral Intake Last Oral intake: Last Oral Intake NPO since 19:00 03/07/25 07:14 Meds taken in AM with sips of Yes 03/07/25 07:14 water? Meds patient instructed to OMEPRAZOLE 03/07/25 07:14 take am of surgery Any additional information?: Yes Meds taken in AM with sips of water?: Yes PONV PONV - sterile processing technologist: PONV - sterile processing technologist Female Yes 02/20/25 13:23 HX of Motion Sickness Yes 02/20/25 13:23 HX of N/V After Surgery No 02/20/25 13:23 Non-Smoker Yes 02/20/25 13:23 Duration of Surgery greater Yes 02/20/25 13:23 than 60 minutes Number of Risk Factors 4 02/20/25 13:23 PONV Score Severe Risk 02/20/25 13:23 Height & Weight Height & Weight: Anesthesia: Height & Weight Height 5 ft 3 in 03/07/25 07:14 Weight: 82 kg 03/07/25 07:14 Body Mass Index (BMI) 32.0 03/07/25 07:14 Respiratory Assessment Respiratory Assessment - sterile processing technologist: Respiratory Tract Infection Hx - sterile processing technologist Hx Respiratory Tract Infection No 02/20/25 13:23 STOP Sleep Apnea STOP Sleep Apnea - sterile processing technologist: STOP Sleep Apnea - sterile processing technologist Hx Hypertension No 02/20/25 13:23 Hx Sleep Apnea No 02/20/25 13:23 CPAP BIPAP Do you snore loudly (louder Yes 02/20/25 13:23 than talking or can be heard Do you often feel tired/ Yes 02/20/25 13:23 fatigued/ sleepy during daytime? Has anyone observed you stop No 02/20/25 13:23 breathing during sleep? STOP Results Positive 02/20/25 13:23 QUESTION #5 FULL TEXT : Do you snore loudly (louder than talking or can be heard through closed doors)? Tobacco Use History Tobacco Use History - sterile processing technologist: Tobacco Use History - sterile processing technologist Tobacco Use Smoking Status Never smoker 02/20/25 13:23 Hx Tobacco Use No 02/20/25 13:23 Years Smoking Packs Smoked per Day Smoking Cessation Date was within the last 15 years Hx Smoking Cessation Date Hx Smoking Cessation Counseling Hematologic Medial History Hematologic Hx - sterile processing technologist: Hematologic Medical Hx - telemarketer supervisor Hx of Blood Transfusion No 02/20/25 13:23 Hx of Transfusion in last 3 No 02/20/25 13:23 Months Date of Last Transfusion (if within last 3 months) Ever experience any problems No 02/20/25 13:23 with transfusion(s)? Specify any problems Hx of Preganancy in last 3 No 02/20/25 13:23 Months Nurse Filling Out Transfusion DSCHRIBER 02/20/25 13:23 & Questions: Date: 02/20/25 02/20/25 13:23 Time: 13:24 02/20/25 13:23 Patient unable to answer at this time (ie. confused, unrespo /Reproduction History /Reproductive History - sterile processing technologist: /Reproductive Hx- sterile processing technologist Hx Now No 02/20/25 13:23 Gestational Age (in weeks): EDC: Hx Hx Para Hx Section SAB No 02/20/25 13:23 Active Medications Active Medications: Current Medications Generic Name Dose Route Start Last Admin Trade Name Freq PRN Reason Stop Dose Admin Lactated Ringer's 1,000 mls @ 40 mls/hr 03/07/25 07:30 IV .Q25H PADDY Cefazolin Sodium 2 gm/ Sodium 110 mls @ 150 mls/hr 03/07/25 07:30 Chloride IV 03/07/25 08:13 INTRAOP ONE Lactated Ringer's 1,000 mls @ 40 mls/hr 03/07/25 07:30 IV .Q25H PADDY Metronidazole 500 mg in 100 mls @ 100 mls/hr 03/07/25 07:30 Flagyl IV 03/07/25 08:29 INTRAOP ONE Insulin Human Lispro 0 unit 03/07/25 07:30 Insulin Lispro 100 Unit/Ml Insuln.Pen SC Q4H PRN PRN BG >/= 180, SEE PROTOCOL Protocol PFS Medical History Wears glasses Easy bruising Back pain Migraine headache Gastric reflux Shortness of breath on exertion Non-smoker Leg cramps History of edema History of irregular heartbeat History of ankle fracture Anxiety Home Medications ?Medication ?Instructions ?Recorded ?Last Taken ?Type spironolactone 25 mg tablet 25 mg PO DAILY 06/18/21 History omeprazole 20 mg capsule,delayed 20 mg PO DAILY 03/07/25 History release paroxetine HCl 20 mg tablet 20 mg PO DAILY 02/20/25 History vitamin E (dl, acetate) 180 mg 180 mg PO DAILY 5 03/06/25 History (400 unit) capsule Allergy/AdvReac Type Severity Reaction Status Date / Time oxycodone (From Percocet) AdvReac Nausea Verified 02/20/25 13:19 Surgical History History of cholecystectomy H/O tubal ligation History of appendectomy Social History Smoking Status: Never smoker Review of Systems (Anesthesia) ROS Narrative System reviewed and no additional complaints, except as documented.
--- NOTE | 2025-03-07 08:30 | UT_PTH ---
PATIENT: TOSHIA SHARIF LOC: [facility] [place] U#:[id number] AGE/SX: 34/F ROOM: RE03/07/[address]: Dr. Yoko Roque MD : 1990 BED: DIS: 03/07/2025 SPEC #: [id number] RECD: 03/07/25 12:42 STATUS: YOLIS PAYAM #: [id number] PEPITO: 03/07/25 08:[address]: Yoko Roque DEPT: SURGICAL PATHOLOGY RECD BY: Michael Main ENTERED: 03/07/25 13:12 SP TYPE: UTERUS OTHR DR: Alyce Velarde, JERRY-Javon Tissues: A - Uterus, NOS Procedures: Surgery Specimen Level V HEADER OPERATION: ERAS, hysterectomy, LAVH, bilateral salpingectomy with cystoscopy PRE-OP DIAGNOSIS: Fibroids, subserous, deep dyspareunia, menorrhagia TISSUE SUBMITTED: A- Uterus with bilateral fallopian tubes MICROSCOPIC DIAGNOSIS A. Uterus and bilateral fallopian tubes, hysterectomy and bilateral salpingectomy: * Cervix: mild hyperkeratosis, chronic inflammation, mildly dilated endocervical glands. * Endometrium: secretory phase. * Myometrium: no specific pathologic change. * Bilateral fallopian tubes: no specific pathologic change x2. MICROSCOPIC DESCRIPTION Slides are reviewed. GROSS DESCRIPTION A. Received in formalin in a container labeled with the patient's name, date of , and uterus, bilateral fallopian tubes and cervix is a hysterectomy specimen with attached cervix and detached bilateral, unoriented fallopian tubes. The uterus is 123.7 g and 10.0 cm from fundus to ectocervix, 5.0 cm from cornu to cornu, and 4.6 cm from anterior to posterior. The serosa is purvis-pink and predominantly smooth and glistening. The white-pink ectocervical face is previously disrupted and measures 3.5 x 3.3 cm. There is a 1.7 cm slit-like os. The right and left cornu are notable for presumed fallopian tube remnants, possibly consistent with a prior ligation. The specimen is bivalved to reveal a purvis-pink and corrugated endocervical canal with multiple small cysts measuring up to 0.4 cm in greatest dimension. The myometrium underlying the posterior endocervical canal is trabecular. The triangular endometrial cavity is 3.9 cm in length by 3.3 cm in width. There is red-purvis, velvety, and somewhat heaped up endometrium which is poorly adheren,t measuring up to 0.9 cm in greatest thickness. The purvis-pink myometrium is coarsely trabecular with a thickness up to 2.1 cm. No myometrial nodules are discovered. Each fimbriated fallopian tube segment is 5.5 cm in length by 0.5 cm in diameter. Each displays purvis-pink, smooth serosa with unremarkable fimbriated ends. Sectioning of each reveals a pinpoint lumen. Forestry Contractor sections:A1. Anterior cervix with anterior serosal shaveA2. Posterior cervix with trabecular myometrium with posterior serosal shaveA3. Anterior endomyometrium (superficial x 2)A4. Posterior endomyometrium (superficial x 2)A5. One fallopian tubeA6. Other fallopian tube [facility] 03-07-2025 CPT:46454
--- NOTE | 2025-03-07 08:57 | PCM.DC ---
Discharge Instructions Diet Discharge Diet: Light diet - advance as tolerated DC O2, CPAP, BIPAP needs Home O2 Discharge instructions: No Dressing / Incision Discharge Activity: May Drive (in 5-7 days), May Shower and May Take a Tub Bath (in 6 weeks) May resume sexual activity in: 6-8 weeks and - (Nothing in your vagina for 6 weeks. No vaginal or anal intercourse for 6-8 weeks) Dressing / Incision Call your doctor if your incision/area has: Continuous Slow Oozing, Sudden Increased Bleeding, Increased Pain/ Swelling and Foul Smelling Discharge Call your doctor if you observe: Fever of 101 or Higher Cleanse incision/area with: Soap & Water and - (Your incisions have skin glue, it can get wet, leave the glue on until it falls off. ) Follow Up Care Please Follow Up With: Yoko Roque MD When: With my office in 1-2 and 6 weeks or as needed. [phone] Test Results: Test results from this visit will be discussed in further detail at your follow-up appointment, if applicable. Discharge Plan Admission Primary Reason for Your Visit: Hysterectomy Attending Provider: Yoko Roque Primary Care Provider: Alyce Velarde NP Instructions Print Language: Finnish Discharge Orders/Prescriptions Prescriptions: New acetaminophen [Acetaminophen Extra Strength] 500 mg tablet 1,000 mg PO Q6H PRN (Reason: fever or pain) 20 Days Qty: 90 1RF naproxen 375 mg tablet 375 mg PO TID PRN (Reason: pain) 20 Days Qty: 60 0RF Continued spironolactone 25 mg tablet 25 mg PO DAILY Patient Comments: TAKE 1 TABLET BY MOUTH EVERY DAY paroxetine HCl 20 mg tablet 20 mg PO DAILY omeprazole 20 mg capsule,delayed release(DR/EC) 20 mg PO DAILY vitamin E (dl, acetate) 180 mg (400 unit) capsule 180 mg PO DAILY Referrals / Follow Up: Aylce Velarde NP, [employer] [Primary Care Provider] - Disposition Disposition (needs filled in before D/C Order can be placed): Home, Self Care
[2025-03-07] MEDS: dexAMETHasone 4 MG/ML Vial 8 MG IV (09:01)
[2025-03-07] MEDS: metroNIDAZOLE 500 MG/100 ML BAG 100 MG IV (09:08)
[2025-03-07] MEDS: Cefazolin 2 GM in 0.9% Normal Saline (100mL Bag) 100 ML IV (09:11)
[2025-03-07 09:38] LABS: Prothrombin Time (Protime)PT. 13.3 SECONDS (11.7-14.9)
[2025-03-07 09:39] LABS: Partial Thromboplast Time 26.1 Seconds (24.1-36.2)
[2025-03-07] MEDS: Bupivacaine Mpf 0.5% 30 ML VIAL (09:50)
[2025-03-07] MEDS: Lidocaine 1%/Epi 1:200 (30ml) 30 ML AMPUL (09:50)
--- NOTE | 2025-03-07 11:09 | PCM.OPRPT ---
Problems Associated Problem List Diagnoses (1) Menorrhagia: (2) Deep dyspareunia: (3) Fibroids, subserous: Operative Report (Standard) Operative Information Date of Procedure: 03/07/25 Pre-Operative Diagnosis: dyspareunia, fibroids, menorrhagia Post-Operative Diagnosis: same Surgery/Procedure Performed: LAVH, bilateral salpingectomy vascular ultrasound technician: Yes Tariff Compiler: Guillermina Manzano PGY3 Tasks completed by senior underwriting assistant: Opening, Closing, Hemostasis: Clamp, Hemostasis: Tie, Hemostasis: Electrocautery, Trocar and Retracting Additional curatorial assistant?: No Type of Anesthesia: General RN Documented Start/Stop Times: Operation Date: 03/07/25 08:30 Case Time Into Pre-Op 03/07/25 06:42 Out of Pre-Op 03/07/25 08:26 Anesthesia Start 03/07/25 08:33 Into Room 03/07/25 08:33 Procedure Start 03/07/25 09:14 Procedure End 03/07/25 10:59 Procedure Start Time: 09:14 Procedure Stop Time: 10:59 Select all DRAINS/GRAFTS/IMPLANTS that apply: None Estimated Blood Loss: 75 Fluids Replaced: 1500 Specimen collected: Yes Description of specimen(s) removed: uterus, cervix, bilateral fallopian tubes Description of surgery: The patient was taken to the operating room where she was prepped and draped in the dorsal lithotomy position. Her arms were tucked to the side and padded and her legs were placed in the yellowfin stirrups. Care was taken to ensure that she was placed in a neurologically safe and neutral position. A weighted speculum was placed in the vagina and the anterior lip of the cervix was grasped with a single-tooth tenaculum. The uterus sounded to 9 centimeters. The ZUMI uterine manipulator was placed and secured. The Calvert catheter was placed to straight drain. Attention was turned to the abdominal portion of the case. Before skin incisions were made they were infiltrated with 0.5% Marcaine solution for local anesthetic. A 5 mm intraumbilical incision was made and while tenting the anterior abdominal wall up with towel clamps a 5 mm blade less trocar and sleeve were advanced directly into the peritoneal cavity. Peritoneal placement was confirmed with the laparoscope the pneumoperitoneum was created, and the underlying abdominal contents were intact. The patient was placed in Trendelenburg and the above findings were noted. Right and left lateral 5 mm trochars were placed under direct visualization without difficulty. The antimesenteric portion of the tube was clamped sealed and transected serially on both sides with the LigaSure device. The round ligaments were clamped sealed and transected and a window was made in the peritoneum. The utero-ovarian ligaments were then clamped, sealed and transected with the LigaSure device and the pedicles were hemostatic The bladder flap was dissected down with the LigaSure device and blunt dissection and the uterine arteries were then skeletonized. The uterine arteries were clamped, sealed and transected on both sides with the LigaSure device. At this point the pedicles were all examined and found to be hemostatic. Attention was turned to the vaginal portion of the case. 1% lidocaine with dilute epinephrine solution was used to infiltrate the anterior vaginal epithelium over the cervix. An incision was made around the entire vaginal epithelium l epithelium and the vaginal epithelium was dissected back with blunt sharp dissection. The anterior colpotomy incision was made. The posterior cul-de-sac was entered sharply and the peritoneum was tagged. The uterosacral ligaments were then clamped transected and suture-ligated. The cardinal ligaments were clamped transected and suture-ligated. There is a small amount of peritoneum left on the patient's left side and this was clamped transected and suture-ligated. The uterus was removed through the vagina. There was some oozing along the angles of the vagina and [id number] Vicryl sutures were needed there there was also a small amount of oozing from the right lower pedicle and a Maria Elena clamp was placed around this and a suture ligature was placed and hemostasis was noted. The posterior vaginal cuff was run with 2-0 Vicryl suture in a running locked fashion. The vaginal cuff was then closed in a horizontal fashion with interrupted 0 Vicryl [id number] sutures. Care was taken to secure the vagina to the uterosacral ligaments. The Calvert catheter was removed and a cystoscopy was performed. The bladder appeared normal and was intact. Both ureteral orifices were noted and both ureteral jets were seen. The cystoscope was removed and the Calvert catheter was placed back to straight drain. A sponge stick was placed in the vagina to help place traction against the vaginal cuff. The laparoscope was reinserted into the abdomen and the pneumoperitoneum was re-created. The pedicles were reexamined and found to be hemostatic. The vaginal cuff was hemostatic. Hemablast was placed over the peritoneal edges and no active bleeding was noted through the Eder. The right and left lateral ports were taken out and the sites were hemostatic. The pneumoperitoneum was released and even under low pressure there was no bleeding of any of the pedicles are vaginal cuff. The umbilical port was removed. The umbilical skin incisions were closed with Monocryl suture and skin glue. The vaginal instruments were removed by me and a vaginal sweep was completed by me. I was present for the entire procedure. All sponge lap and needle counts were correct and the patient was transferred to the recovery room in stable condition. Surgical Findings: boggy uterus, tubes with evidence of tubal, normal ovaries and bladder Complications Complications: No Admit VTE Documentation VTE Present on Admission: No VTE Mechan Device Prophylaxis: SCD's VTE Pharm Prophylaxis ordered?: No Reason prophylaxis not ordered: Procedure Not Indicated
--- NOTE | 2025-03-07 11:13 | PCM.POST.ANE ---
Anesthesia: Postop Eval I Current Vital Signs Temperature: 98.3 F Pulse Rate: 84 Blood Pressure: 104/52 Respiratory Rate: 16 Pulse Ox: 100 Oxygen Delivery Method: Room Air Assessment Airway patent: Yes Spontaneous unlabored respirations: Yes Mental status: Awake and Calm nausea: No Vomiting: No Anesthesia Complication: No Fluid Hydration Crystalloid volume administer (ml): 1,500 Total IV fluid infused: 1,500 Progress Note Anesthesia document: Postop Eval 1 completed: Yes
--- NOTE | 2025-03-07 16:41 | POSTOPAN2_ITS ---
Anesthesia Postop Eval I Sum Postop Eval Completion status Anesthesia document: Postop Eval 1 completed: Yes Anesthesia Postop Eval I Summary Anesthesia Postop Eval I Summary: Anesthesia Postop Eval I: Assessment Summary Airway patent Yes 03/07/25 11:16 OUTBOUND SALES SPECIALIST.[email or web address] Spontaneous unlabored Yes 03/07/25 11:16 OUTBOUND SALES SPECIALIST.SHELBY respirations Mental status Awake,Calm 03/07/25 11:16 OUTBOUND SALES SPECIALIST.SKOBY nausea No 03/07/25 11:16 OUTBOUND SALES SPECIALIST.SKOBY Vomiting No 03/07/25 11:16 OUTBOUND SALES SPECIALIST.PACHECOOBMario Anesthesia Postop Eval I: Fluid Summary Crystalloid volume administer 1,500 03/07/25 11:16 OUTBOUND SALES SPECIALIST.SKOBY (ml) Colloids volume administered ( ml) Blood Product volume administered (ml) Total IV fluid infused 1,500 03/07/25 11:16 OUTBOUND SALES SPECIALIST.PACHECOOBMario Anesthesia Postop Eval I: Summary Notes Anesthesia Complication No 03/07/25 11:16 OUTBOUND SALES SPECIALIST.SHELBY Anesthesia Complication Comment: Post-operative progress note Anesthesia: Postop Eval II Evaluation Mental status: Awake Pain Level: 3 nausea: No Vomiting: No
--- NOTE | 2025-03-07 16:41 | PCM.POSTANE2 ---
Anesthesia Postop Eval I Sum Postop Eval Completion status Anesthesia document: Postop Eval 1 completed: Yes Anesthesia Postop Eval I Summary Anesthesia Postop Eval I Summary: Anesthesia Postop Eval I: Assessment Summary Airway patent Yes 03/07/25 11:16 MAINFRAME CONSULTANT.[email or web address] Spontaneous unlabored Yes 03/07/25 11:16 MAINFRAME CONSULTANT.SHELBY respirations Mental status Awake,Calm 03/07/25 11:16 MAINFRAME CONSULTANT.SKOBY nausea No 03/07/25 11:16 MAINFRAME CONSULTANT.SKOBY Vomiting No 03/07/25 11:16 MAINFRAME CONSULTANT.PACHECOOBMario Anesthesia Postop Eval I: Fluid Summary Crystalloid volume administer 1,500 03/07/25 11:16 MAINFRAME CONSULTANT.SKOBY (ml) Colloids volume administered ( ml) Blood Product volume administered (ml) Total IV fluid infused 1,500 03/07/25 11:16 MAINFRAME CONSULTANT.PACHECOOBMario Anesthesia Postop Eval I: Summary Notes Anesthesia Complication No 03/07/25 11:16 MAINFRAME CONSULTANT.SHELBY Anesthesia Complication Comment: Post-operative progress note Anesthesia: Postop Eval II Evaluation Mental status: Awake Pain Level: 3 nausea: No Vomiting: No
== END 2025-03-07 14:36 | disposition home or self-care (01) ==
LOC: SDC 06:34 → AC 06:34
PROVIDERS: Anesthesiology; PCP Nurse Practitioner Family; Referring Provider Obstetrics & Gynecology; Visit Provider Obstetrics & Gynecology
PROC: 0UT9FZZ Resection of Uterus, Via Natural or Artificial Opening With Percutaneous Endoscopic Assistance (ICD-10-PCS; CPT 58552; principal; 2025-03-07 08:05)
DX: D25.9 Leiomyoma of uterus, unspecified (principal); N92.0 Excessive and frequent menstruation with regular cycle; N94.12 Deep dyspareunia; F41.9 Anxiety disorder, unspecified; K21.9 Gastro-esophageal reflux disease without esophagitis; Z79.899 Other long term (current) drug therapy
CPT/HCPCS: 58552; 00840; 36415; 80053; 81025; 82962; 83735; 85027; 85610; 85730; 86850; 86900; 86901; 88307; J2405; J3475